=== PATIENT | male | born 1990 ===

== ENCOUNTER → 2016-11-20 | Outpatient (REF) | payer OTHER ==
[2016-11-20 13:03] LABS: % NORMAL FORMS < 4 % (>=4); IMMOTILITY 0 %; NON PROGRESSIVE MOTILITY (c) 0 %; PROGRESSIVE MOTILITY (a) 0 % (>=32); SPERM# 0 M/Ejac (>=39); TOTAL FUNCTIONAL 0 M/Ejac.; TOTAL MOTILITY 0 % (>=40); TOTAL PROGRESSIVE SPERM 0 M/Ejac.
== END ==
LOC: M LAB REF 12:04
PROVIDERS: ATTEND Advanced Practice Midwife
DX: Z31.41 Encounter for fertility testing (principal)